=== PATIENT | male | born 1965 | race Two or more races ===

== ENCOUNTER 2022-04-12 21:42 | Emergency (ER) | payer OTHER ==
[~2022-04-12] VITALS: Ht 167.6 cm; Wt 61.2 kg
--- NOTE | 2022-04-12 21:50 | NUR ---
TO ER BED 6. BIBRA FROM HOME FOR ASTHMA ATTACK. +WHEEZING SATTING 89% AT SCENE . PT IS ALERT AND ORIENTED. RR EVEN AND NONLABORED. CONNECTED TO POX AND HEART MONITOR. O2SAT 98% AT TRIAGE.
[2022-04-12] MEDS ORDERED: methylPREDNISolone SOD SUCC 125 MG/2ML VIAL ONE (21:52)
[2022-04-12] MEDS ORDERED: IPRATROPIUM NEB FS 0.5 MG/2.5 ML AMPUL.NEB ONE (21:56)
[2022-04-12] MEDS ORDERED: ALBUTEROL FS 2.5 MG/3 ML VIAL.NEB ONE (21:56)
[2022-04-12] MEDS ORDERED: methylPREDNISolone SOD SUCC 125 MG/2ML VIAL IV ONE (22:00)
[2022-04-12] MEDS ORDERED: ALBUTEROL FS 2.5 MG/3 ML VIAL.NEB NEB ONE (22:00)
[2022-04-12] MEDS ORDERED: IV NS 0.9% 1,000 ML BAG IV ONE (22:00)
[2022-04-12] MEDS ORDERED: IPRATROPIUM NEB FS 0.5 MG/2.5 ML AMPUL.NEB NEB ONE (22:00)
--- NOTE | 2022-04-12 22:00 | NUR ---
IV LINE ESTABLISHED, [id number]
--- NOTE | 2022-04-12 23:46 | NUR ---
IV removed. Catheter intact and site benign. Pressure and 4x4 applied to site. No bleeding noted.Patient discharged to home in stable condition. Written and verbal after care instructions given. Patient verbalizes understanding of instruction.
[2022-04-12 23:48] VITALS: BP 125/80
== END 2022-04-12 23:48 | disposition home or self-care (01) ==
LOC: ER 21:44
DX: J98.01 Acute bronchospasm (principal); Z60.2 Problems related to living alone
CPT/HCPCS: 99283; 96374; 96361; 94640 ×2; J2930; J7030